=== PATIENT | male | born 1970 | race Caucasian/White ===

== ENCOUNTER 2017-09-01 01:23 | Inpatient (IN) ==
[2017-09-01] MEDS ORDERED: 0.9 % Sodium Chloride 1,000 ML IVC ONE (01:48)
--- NOTE | 2017-09-01 02:00 | Emergency Department Note ---
Disposition Clinical Impression: Severe sepsis Cellulitis Qualifiers: Site of cellulitis: unspecified site Qualified Code(s): L03.90 - Cellulitis, unspecified Disposition: Admitted As Inpatient Condition: Undetermined Referrals: NONE,PCP [Primary Care Provider] - Keven Santoyo [Family Provider] - General Adult HPI - General Chief complaint: ED General Medical Stated complaint: Edema, Skin Infection(s) Time Seen by Provider: 09/01/17 01:33 Source: patient Mode of arrival: private vehicle Limitations: no limitations Nursing Notes Reviewed: Yes Vital Signs Reviewed: Yes - History of Present Illness HPI Narrative: 47-year-old homeless male presents to the emergency department for evaluation of multiple "spider bites", left upper extremity, bilateral lower extremity edema with redness and new abscess areas. Patient states about 6 weeks ago he was seen at [facility] and had a surgery on his hand, and recently he was admitted for cellulitis and these abscesses for IV antibiotics, he stated he only stayed for 2 days and he left AMA on 08/28/17, since then abscesses, edema, red areas have become considerably worse. Patient states he has been having fevers, feeling malaise. Patient states he has a history of IV drug use. Onset (ago): week(s) Radiation: non-radiation Pain Severity: severe Pain Scale: 10 Consistency: constant Improves with: nothing Worsens with: nothing Treatments Prior to Arrival: none - Related Data Allergies Allergy/AdvReac Type Severity Reaction Status Date / Time codeine Allergy See Verified 09/01/17 02:29 Comments Penicillins Allergy See Verified 09/01/17 02:29 Comments All systems ED: reviewed and negative except as stated. Review of Systems: As Per HPI Past Medical History - Past Medical History Attestation: Yes The following information was validated with the patient. Source: patient Medical history: Reports: diabetes - Social History Smoking Status: Current every day smoker Alcohol use: Reports: none Drug use: Reports: cocaine, marijuana Physical Exam - General Limitations: no limitations General appearance: alert, in distress - Head Head exam: atraumatic, normocephalic, normal inspection - ENT ENT exam: mucous membranes dry - Neck Neck exam: Present: normal inspection, full ROM, trachea midline - Chest Chest inspection: Present: normal inspection, symmetric chest wall rise - Respiratory Respiratory exam: Present: normal lung sounds bilaterally - Cardiovascular Cardiovascular exam: Present: regular rate, normal rhythm, normal heart sounds - Abdominal Exam Abdominal exam: Present: soft, Non-Tender - Expanded Lower Extremity Exam Gait: not tested/not observed - Neurological Exam Neurological exam: Present: alert, oriented X3 - Psychiatric Psychiatric exam: Present: agitated, anxious - Skin Skin exam: Present: other - Expanded Skin Exam 1 - 4+ pitting edema, erythemic area just distal to great toe to dorsal side of foot extending half way to ankle 2 - 3+ pitting edema 3 - 2x2 open lesion with purulent drainage on top of granulating tissue 4 - small purulent open, draining lesion 5 - severe edema, erythema 6 - large open lesion with purulent drainage on top of a granulating wound bed 7 - lesion with purulent drainage on top of a granulating wound base 8 - erythemic areas with edema 9 - puncture area 10 - puncture area 11 - large open lesion with purulent drainage to granulating wound bed 12 - smaller open lesion Course Course Narrative: 47-year-old male in obvious distress related to pain. Patient is very anxious. Examination as described above. Briefly, patient with multiple open lesions from draining abscesses, edema to bilateral lower extremities, left upper extremity. Patient perfusing well with distal pulses present and strong, cap refill brisk, EKG reveals sinus tachycardia with a ventricular rate of 101, intervals within normal limits, no indication of ST elevation or depression. Due to lesions, blood pressure obtained on right lower extremity. Briefly discussed patient returning to the [facility] he received care before, he is refusing but is willing to be admitted to our facility. Patient yelling out, very anxious even after pain medicine administration. We will administer lorazepam IV to assist with anxiety. Regional lab work revealed a white count of 20.7, lactic acid 2.8, glucose 594, pH a 0.34, 0.05. Blood cultures were drawn upon arrival. Patient was already running initial bolus, ordered vancomycin and Zosyn after initial blood cultures drawn. We will continue with sepsis subset. Lab attempting to draw second set of blood cultures with patient refusal, he is approached many times regarding need for further laboratory values with refusal. Time lactic acid was ordered upon initial arrival. Patient does meet severe sepsis criteria. He will continue with IV boluses and treatment while in ED. Spoke with hospitalist regarding admission to hospital who is agreeable to accept patient. Vital Signs Temperature 98.2 F 09/01/17 01:36 Pulse Rate 125 09/01/17 01:36 Respiratory Rate 20 09/01/17 01:36 Blood Pressure 162/110 09/01/17 01:36 O2 Sat by Pulse Oximetry 99 09/01/17 01:36 Temperature 98.2 F 09/01/17 01:36 Pulse Rate 94 09/01/17 04:14 Respiratory Rate 16 09/01/17 04:14 Blood Pressure 165/92 09/01/17 04:14 O2 Sat by Pulse Oximetry 100 09/01/17 04:14 Oxygen Delivery Oxygen Delivery Room Air Medical Decision Making - Lab Data Lab results reviewed: Yes I reviewed the patient's lab results. Result diagrams: 09/01/17 01:52 09/01/17 01:52 Lab Results 09/01/17 09/01/17 09/01/17 Range/Units 01:52 01:52 01:52 WBC 20.7 H (4.3-11.1) K/mcL RBC 4.58 (4.19-5.50) M/mcL Hgb 11.4 L (12.9-16.9) g/dL Hct 35.4 L (37.5-50.1) % MCV 77.3 L (83.0-100.0) fL MCH 24.9 L (28.0-33.3) pg MCHC 32.2 (31.6-35.5) g/dL RDW 14.1 (11.5-14.5) % Plt Count 444 H (140-400) K/mcL MPV 8.9 L (9.4-12.4) fL Immature Gran % 0.7 (0-4) % Seg Neutrophils % 86.0 % Lymphocytes % 9.3 % Monocytes % 3.7 % Eosinophils % 0.1 % Basophils % 0.2 % Neutrophils # 17.8 H (1.6-8.9) K/mcL Lymphocytes # 1.9 (0.6-4.6) K/mcL Monocytes # 0.8 (0.0-1.3) K/mcL Eosinophils # 0.0 (0.0-0.6) K/mcL Basophils # 0.0 (0.0-0.2) K/mcL PT 14.4 H (9.4-12.1) Seconds INR 1.3 APTT 29.5 (26.0-36.0) Seconds Sodium 130 L (136-145) mEq/L Potassium 3.7 (3.5-5.1) mEq/L Chloride 95 L (98-107) mEq/L Carbon Dioxide 26 (23-29) mEq/L BUN 5 L (6-20) mg/dL Creatinine 0.61 L (0.70-1.30) mg/dL Est GFR ( Amer) > 60 (> 60) Est GFR (Non-Af Amer) > 60 (> 60) BUN/Creatinine Ratio 8 (6-26) Glucose 594 H* (70-105) mg/dL Calculated Osmolality 295 (280-300) Lactic Acid (0.5-2.2) mmol/L Calcium 8.0 L (8.6-10.3) mg/dL Phosphorus 2.9 (2.7-4.5) mg/dL Magnesium 1.4 L (1.6-2.6) mg/dL Total Bilirubin 0.4 (0.3-1.0) mg/dL Direct Bilirubin 0.1 (0.0-0.2) mg/dL Indirect Bilirubin 0.3 (0.0-1.2) mg/dL AST 16 (13-39) Units/L ALT 26 (7-52) Units/L Alkaline Phosphatase 134 H (34-104) Units/L Troponin I 0.05 H* (< 0.04) ng/mL Serum Total Protein 5.8 L (6.4-8.9) g/dL Albumin 2.3 L (3.5-5.7) g/dL Globulin 3.5 (2.4-3.5) g/dL Albumin/Globulin Ratio 0.7 L (1.1-2.2) Beta-Hydroxybutyric Acd (0.02-0.27) mmol/L 09/01/17 09/01/17 Range/Units 01:52 01:52 WBC (4.3-11.1) K/mcL RBC (4.19-5.50) M/mcL Hgb (12.9-16.9) g/dL Hct (37.5-50.1) % MCV (83.0-100.0) fL MCH (28.0-33.3) pg MCHC (31.6-35.5) g/dL RDW (11.5-14.5) % Plt Count (140-400) K/mcL MPV (9.4-12.4) fL Immature Gran % (0-4) % Seg Neutrophils % % Lymphocytes % % Monocytes % % Eosinophils % % Basophils % % Neutrophils # (1.6-8.9) K/mcL Lymphocytes # (0.6-4.6) K/mcL Monocytes # (0.0-1.3) K/mcL Eosinophils # (0.0-0.6) K/mcL Basophils # (0.0-0.2) K/mcL PT (9.4-12.1) Seconds INR APTT (26.0-36.0) Seconds Sodium (136-145) mEq/L Potassium (3.5-5.1) mEq/L Chloride (98-107) mEq/L Carbon Dioxide (23-29) mEq/L BUN (6-20) mg/dL Creatinine (0.70-1.30) mg/dL Est GFR ( Amer) (> 60) Est GFR (Non-Af Amer) (> 60) BUN/Creatinine Ratio (6-26) Glucose (70-105) mg/dL Calculated Osmolality (280-300) Lactic Acid 2.8 H (0.5-2.2) mmol/L Calcium (8.6-10.3) mg/dL Phosphorus (2.7-4.5) mg/dL Magnesium (1.6-2.6) mg/dL Total Bilirubin (0.3-1.0) mg/dL Direct Bilirubin (0.0-0.2) mg/dL Indirect Bilirubin (0.0-1.2) mg/dL AST (13-39) Units/L ALT (7-52) Units/L Alkaline Phosphatase (34-104) Units/L Troponin I (< 0.04) ng/mL Serum Total Protein (6.4-8.9) g/dL Albumin (3.5-5.7) g/dL Globulin (2.4-3.5) g/dL Albumin/Globulin Ratio (1.1-2.2) Beta-Hydroxybutyric Acd 0.34 H (0.02-0.27) mmol/L - Radiology Data Radiology results reviewed: Yes I reviewed the patient's radiology results.
[2017-09-01] MEDS ORDERED: *HR* Nalbuphine 10 MG/ML AMPUL IM ONE (02:01)
[2017-09-01] MEDS ORDERED: Piperacillin/Tazobactam 3.375 GM in 0.9 % Sodium Chloride Mini Bag 100 ML IVPB ONE (02:01)
[2017-09-01 02:06] LABS: Basophils % 0.2 %; Eosinophils % 0.1 %; Hematocrit 35.4 % (37.5-50.1); Hemoglobin 11.4 g/dL (12.9-16.9); Immature Granulocytes % 0.7 % (0-4); Lymphocytes # 1.9 K/mcL (0.6-4.6); Lymphocytes % 9.3 %; Mean Corpuscular HGB Conc 32.2 g/dL (31.6-35.5); Mean Corpuscular Hemoglobin 24.9 pg (28.0-33.3); Mean Corpuscular Volume 77.3 fL (83.0-100.0); Mean Platelet Volume 8.9 fL (9.4-12.4); Monocytes # 0.8 K/mcL (0.0-1.3); Monocytes % 3.7 %; Neutrophils # 17.8 K/mcL (1.6-8.9); Platelet Count 444 K/mcL (140-400); Red Blood Count 4.58 M/mcL (4.19-5.50); Red Cell Distribution Width 14.1 % (11.5-14.5)
[2017-09-01 02:14] LABS: INR 1.3; Prothrombin Time 14.4 Seconds (9.4-12.1)
[2017-09-01 02:22] LABS: Activated Partial Thrombo Time 29.5 Seconds (26.0-36.0)
[2017-09-01 02:30] LABS: Alanine Aminotransferase 26 Units/L (7-52); Albumin 2.3 g/dL (3.5-5.7); Albumin/Globulin Ratio 0.7 (1.1-2.2); Alkaline Phosphatase 134 Units/L (34-104); Aspartate Amino Transferase 16 Units/L (13-39); BUN/Creatinine Ratio 8 (6-26); Bilirubin,Direct 0.1 mg/dL (0.0-0.2); Bilirubin,Indirect 0.3 mg/dL (0.0-1.2); Bilirubin,Total 0.4 mg/dL (0.3-1.0); Blood Urea Nitrogen 5 mg/dL (6-20); Carbon Dioxide 26 mEq/L (23-29); Chloride 95 mEq/L (98-107); Globulin 3.5 g/dL (2.4-3.5); Glucose 594 mg/dL (70-105); Magnesium 1.4 mg/dL (1.6-2.6); Osmolality,Calculated 295 (280-300); Phosphorous 2.9 mg/dL (2.7-4.5); Potassium 3.7 mEq/L (3.5-5.1); Sodium 130 mEq/L (136-145); Total Protein 5.8 g/dL (6.4-8.9); Troponin I 0.05 ng/mL (< 0.04); eGFR For African Americans > 60 (> 60); eGFR For Non-African Americans > 60 (> 60)
[2017-09-01] MEDS ORDERED: *HR* Nalbuphine 10 MG/ML AMPUL IVP ONE (02:31)
[2017-09-01] MEDS ORDERED: *HR* LORazepam 2 MG/ML VIAL IVP ONE ×2 (02:31→21:45)
[2017-09-01] MEDS ORDERED: Insulin LISPRO 300 UNITS/3 ML VIAL SQ ONE (03:05)
[2017-09-01] MEDS ORDERED: Naloxone 0.4 MG/ML INJ IVP PRN (03:11)
[2017-09-01] MEDS ORDERED: D5% in Water 1,000 ML IVC PRN (03:11)
[2017-09-01] MEDS ORDERED: Acetaminophen 325 MG TABLET PO PRN (03:11)
[2017-09-01] MEDS ORDERED: *HR* Dextrose 50 % in Water (Syg) 50 ML SYRINGE IVP PRN (03:11)
[2017-09-01] MEDS ORDERED: Dextrose Gel 15 GM/37.5 ML TUBE PO PRN ×2 (03:11)
--- NOTE | 2017-09-01 03:16 | Internal Med History&Physical ---
Date of Encounter: 09/01/17 Time of Encounter: 03:13 Internal Medicine - H&P: HPI Chief complaint: Abscess and sores Admitted From: Emergency Dept Plans for Post Hospital Care: Home History of present illness: Mr. Hidalgo is a 47 year old male with history of diabetes, IV drug abuse , was homeless who presents stating that he has multiple "spider bites" all over his body. Please note that the patient was very agitated when he came to the ED and he was given 2 mg of Ativan and both Tylenol and does not seem he was heavily sedated. Most of the history was obtained through the nurse practitioner was seen in the ED. She reported to me that the patient reports that about 6 weeks ago he was seen at [facility] and had surgery on his right hand/wrist for an abscess. He also was admitted recently at [facility] for cellulitis and abscess and was put on IV antibiotics and left after 2 days against medical advise. He stated to the ED staff that since then the abscesses have become more red, edematous, and painful. He has been having fevers and feeling generalized malaise. In the ED he was noted to be hypertensive. He was afebrile. Laboratory workup showed leukocytosis, lactic acidosis, and mildly elevated troponins at 0.04. His glucose was noted to be in the 500s he was given IV fluids and 5 units of insulin. The patient was given Zosyn and vancomycin in the ED as well. Past Med Surg Social Fam HX - Past Medical History Medical history: diabetes Additional medical history: herniated disk - Past Surgical History Additional surgical history: right knee sx. right hand sx - Social History Smoking Status: Current every day smoker Alcohol use: none Drug use: cocaine, marijuana Internal Medicine - H&P: Meds 3 Allergy/AdvReac Type Severity Reaction Status Date / Time codeine Allergy See Verified 09/01/17 02:29 Comments Penicillins Allergy See Verified 09/01/17 02:29 Comments ROS unobtainable: due to mental status - Constitutional Vitals: Temp Pulse Resp BP Pulse Ox 98.2 F 87 18 162/110 96 09/01/17 01:36 09/01/17 02:57 09/01/17 02:57 09/01/17 01:36 09/01/17 02:57 Exam: GEN: sedated, lethargic HEENT: AT, NC, No cyanosis, oral mucosa is moist, No JVD Lymphatics: No lymphadenoapthy Eyes: Extrocular muscles intact, anicteric CVS:RRR. S1, S2, No m/r/g RESP: CTAB ABD: Soft, NT, ND, +BS EXT: No edema, erythema noted throughout his trunk and back and in the lower extremities bilaterally. Tattoos noted throughout his body. 2+ DP NEURO: Moves extremities spontaneously. Pupils equal and reactive. Internal Med - H&P Results - Labs CBC & Chem 7: 09/01/17 01:52 09/01/17 01:52 Labs: Short CBC 09/01/17 Range/Units 01:52 WBC 20.7 H (4.3-11.1) K/mcL Hgb 11.4 L (12.9-16.9) g/dL Hct 35.4 L (37.5-50.1) % Plt Count 444 H (140-400) K/mcL Neutrophils # 17.8 H (1.6-8.9) K/mcL BMP 09/01/17 01:52 Sodium 130 L Potassium 3.7 Chloride 95 L Carbon Dioxide 26 BUN 5 L Creatinine 0.61 L Glucose 594 H* Calcium 8.0 L Cardiac Enzymes 09/01/17 Range/Units 01:52 Troponin I 0.05 H* (< 0.04) ng/mL Liver Function 09/01/17 Range/Units 01:52 Total Bilirubin 0.4 (0.3-1.0) mg/dL Direct Bilirubin 0.1 (0.0-0.2) mg/dL AST 16 (13-39) Units/L ALT 26 (7-52) Units/L Alkaline Phosphatase 134 H (34-104) Units/L Albumin 2.3 L (3.5-5.7) g/dL - Assessment and plan (1) Encephalopathy acute Current Visit: Yes Status: Acute Assessment and plan: Patient is likely to be encephalopathic due Ativan. Reportedly he was belligerent and agitated upon presentation and needed to be given Ativan. He may have been under the influence of some type of a substance when he presented. We will check a urine drug screen. We will await the morning for his mental status did clear. (2) Severe sepsis Current Visit: Yes Status: Acute Assessment and plan: Has leukocytosis, tachycardia, as well as lactic acidosis. Source is likely to be cellulitis. We will treat underlying causes below. (3) Cellulitis Current Visit: Yes Status: Acute Assessment and plan: We will place patient on IV vancomycin and Zosyn. Continue IV fluids. Follow- up on blood cultures. May need a consult to ID. Patient may end up requesting to leave AMA. Records have been requested from [facility] Qualifiers: Site of cellulitis: unspecified site Qualified Code(s): L03.90 - Cellulitis , unspecified (4) Hyperglycemia Current Visit: Yes Status: Acute Assessment and plan: Likely secondary sepsis. We will put him on sliding scale. His been given IV insulin in the ED. We will continue Accu-Cheks and have repeat of his glucose after some IV admission. Check A1c. (5) Diabetes mellitus Current Visit: Yes Status: Acute Assessment and plan: Patient is hyperglycemic. ACCU-CHEKS. Medium dose sliding scale. Diabetic diet. Rest of plan as above. Qualifiers: Diabetes mellitus type: type 2 Diabetes mellitus chcf insulin use: without chcf use Diabetes mellitus complication status: without complication Qualified Code(s): E11.9 - Type 2 diabetes mellitus without complications (6) Lactic acidosis Current Visit: Yes Status: Acute Assessment and plan: Patient has received IV fluids in the ED. We will give IV fluids and repeat lactic acid. (7) Hyponatremia Current Visit: Yes Status: Acute Assessment and plan: Likely pseudohyponatremia given elevated glucose. We will monitor. Patient is on IV fluids. (8) Elevated blood pressure reading Current Visit: Yes Status: Acute Assessment and plan: Unsure of the patient's history. Unknown if he has hypertension. We will put him on IV hydralazine when necessary. (9) Elevated troponin Current Visit: Yes Status: Acute Assessment and plan: Likely secondary to sepsis. No EKG changes concerning for ischemia. We will trend for now. (10) DVT prophylaxis Current Visit: Yes Status: Acute Assessment and plan: Heparin subcutaneous - Time Spent With Patient Total time spent is greater than 50% in coordination of care (as documented) at patient's floor/unit and/or counseling patient:
--- NOTE | 2017-09-01 03:56 | Emergency Department Note ---
Disposition Clinical Impression: Severe sepsis Cellulitis Qualifiers: Site of cellulitis: unspecified site Qualified Code(s): L03.90 - Cellulitis, unspecified Disposition: Admitted As Inpatient Condition: Fair General Adult HPI - General Chief complaint: ED Skin/Abscess/Foreign Body Stated complaint: Edema, Skin Infection(s) Time Seen by Provider: 09/01/17 01:33 Source: patient Mode of arrival: private vehicle Limitations: no limitations Nursing Notes Reviewed: Yes Vital Signs Reviewed: Yes - History of Present Illness Pain Scale: 10 Improves with: nothing Worsens with: nothing Treatments Prior to Arrival: none - Related Data Allergies Allergy/AdvReac Type Severity Reaction Status Date / Time codeine Allergy See Verified 09/01/17 02:29 Comments Penicillins Allergy See Verified 09/01/17 02:29 Comments Past Medical History - Past Medical History Medical history: Reports: diabetes - Social History Smoking Status: Current every day smoker Alcohol use: Reports: none Drug use: Reports: cocaine, marijuana Physical Exam - General Limitations: no limitations General appearance: alert, in distress Course Vital Signs Temperature 98.2 F 09/01/17 01:36 Pulse Rate 125 09/01/17 01:36 Respiratory Rate 20 09/01/17 01:36 Blood Pressure 162/110 09/01/17 01:36 O2 Sat by Pulse Oximetry 99 09/01/17 01:36 Temperature 98.2 F 09/01/17 01:36 Pulse Rate 94 09/01/17 04:14 Respiratory Rate 16 09/01/17 05:07 Blood Pressure 180/99 09/01/17 05:07 O2 Sat by Pulse Oximetry 100 09/01/17 04:14 Oxygen Delivery Oxygen Delivery Room Air Medical Decision Making - Lab Data Result diagrams: 09/01/17 01:52 09/01/17 01:52 Lab Results 09/01/17 09/01/17 09/01/17 Range/Units 01:52 01:52 01:52 WBC 20.7 H (4.3-11.1) K/mcL RBC 4.58 (4.19-5.50) M/mcL Hgb 11.4 L (12.9-16.9) g/dL Hct 35.4 L (37.5-50.1) % MCV 77.3 L (83.0-100.0) fL MCH 24.9 L (28.0-33.3) pg MCHC 32.2 (31.6-35.5) g/dL RDW 14.1 (11.5-14.5) % Plt Count 444 H (140-400) K/mcL MPV 8.9 L (9.4-12.4) fL Immature Gran % 0.7 (0-4) % Seg Neutrophils % 86.0 % Lymphocytes % 9.3 % Monocytes % 3.7 % Eosinophils % 0.1 % Basophils % 0.2 % Neutrophils # 17.8 H (1.6-8.9) K/mcL Lymphocytes # 1.9 (0.6-4.6) K/mcL Monocytes # 0.8 (0.0-1.3) K/mcL Eosinophils # 0.0 (0.0-0.6) K/mcL Basophils # 0.0 (0.0-0.2) K/mcL PT 14.4 H (9.4-12.1) Seconds INR 1.3 APTT 29.5 (26.0-36.0) Seconds Sodium 130 L (136-145) mEq/L Potassium 3.7 (3.5-5.1) mEq/L Chloride 95 L (98-107) mEq/L Carbon Dioxide 26 (23-29) mEq/L BUN 5 L (6-20) mg/dL Creatinine 0.61 L (0.70-1.30) mg/dL Est GFR ( Amer) > 60 (> 60) Est GFR (Non-Af Amer) > 60 (> 60) BUN/Creatinine Ratio 8 (6-26) Glucose 594 H* (70-105) mg/dL Calculated Osmolality 295 (280-300) Lactic Acid (0.5-2.2) mmol/L Calcium 8.0 L (8.6-10.3) mg/dL Phosphorus 2.9 (2.7-4.5) mg/dL Magnesium 1.4 L (1.6-2.6) mg/dL Total Bilirubin 0.4 (0.3-1.0) mg/dL Direct Bilirubin 0.1 (0.0-0.2) mg/dL Indirect Bilirubin 0.3 (0.0-1.2) mg/dL AST 16 (13-39) Units/L ALT 26 (7-52) Units/L Alkaline Phosphatase 134 H (34-104) Units/L Troponin I 0.05 H* (< 0.04) ng/mL Serum Total Protein 5.8 L (6.4-8.9) g/dL Albumin 2.3 L (3.5-5.7) g/dL Globulin 3.5 (2.4-3.5) g/dL Albumin/Globulin Ratio 0.7 L (1.1-2.2) Beta-Hydroxybutyric Acd (0.02-0.27) mmol/L 09/01/17 09/01/17 Range/Units 01:52 01:52 WBC (4.3-11.1) K/mcL RBC (4.19-5.50) M/mcL Hgb (12.9-16.9) g/dL Hct (37.5-50.1) % MCV (83.0-100.0) fL MCH (28.0-33.3) pg MCHC (31.6-35.5) g/dL RDW (11.5-14.5) % Plt Count (140-400) K/mcL MPV (9.4-12.4) fL Immature Gran % (0-4) % Seg Neutrophils % % Lymphocytes % % Monocytes % % Eosinophils % % Basophils % % Neutrophils # (1.6-8.9) K/mcL Lymphocytes # (0.6-4.6) K/mcL Monocytes # (0.0-1.3) K/mcL Eosinophils # (0.0-0.6) K/mcL Basophils # (0.0-0.2) K/mcL PT (9.4-12.1) Seconds INR APTT (26.0-36.0) Seconds Sodium (136-145) mEq/L Potassium (3.5-5.1) mEq/L Chloride (98-107) mEq/L Carbon Dioxide (23-29) mEq/L BUN (6-20) mg/dL Creatinine (0.70-1.30) mg/dL Est GFR ( Amer) (> 60) Est GFR (Non-Af Amer) (> 60) BUN/Creatinine Ratio (6-26) Glucose (70-105) mg/dL Calculated Osmolality (280-300) Lactic Acid 2.8 H (0.5-2.2) mmol/L Calcium (8.6-10.3) mg/dL Phosphorus (2.7-4.5) mg/dL Magnesium (1.6-2.6) mg/dL Total Bilirubin (0.3-1.0) mg/dL Direct Bilirubin (0.0-0.2) mg/dL Indirect Bilirubin (0.0-1.2) mg/dL AST (13-39) Units/L ALT (7-52) Units/L Alkaline Phosphatase (34-104) Units/L Troponin I (< 0.04) ng/mL Serum Total Protein (6.4-8.9) g/dL Albumin (3.5-5.7) g/dL Globulin (2.4-3.5) g/dL Albumin/Globulin Ratio (1.1-2.2) Beta-Hydroxybutyric Acd 0.34 H (0.02-0.27) mmol/L Attestation Statement - Attestation Attestation: I, Jefferson Ricardo MD, personally evaluated this patient and discussed their management with the resident physician. I reviewed the resident's note and agree with the documented findings, medical decision making, and plan of care. 47-year-old male presents to the emergency department complaining of pain and swelling in his left hand and left arm. He also complains of multiple open wounds and drainage. No fever. Patient had surgery on his right hand about 6 weeks ago and then started developing these sores in wounds. He was apparently recently in the hospital in [place] and left AMA several days ago. On examination patient is a well-developed well-nourished male in no acute distress. He is alert and answers questions appropriately. No cyanosis or diaphoresis. Breath sounds are clear and equal bilaterally. Heart regular with a mild tachycardia. Abdomen soft and nontender with normal bowel sounds. Patient has multiple scattered open wounds with surrounding erythema and purulent drainage. There is moderate swelling of the left distal forearm and hand and erythema. Also moderate erythema over the medial proximal left upper arm. Labs reviewed. Blood cultures obtained and antibiotics initiated. The hospitalist, Dr. Joy, was consulted and accepted admission of the patient.
[2017-09-01 05:14] LABS: Bilirubin,Urine Negative (Negative); Blood,Urine Negative (Negative); Clarity,Urine Clear (Clear); Glucose,Urine (UA) 500 mg/dL (Normal); Ketones,Urine Negative (Negative); Leukocyte Esterase,Urine Negative (Negative); Nitrite,Urine Negative (Negative); PH,Urine 7.5 pH Units (5.0-8.0); Protein,Urine Negative (Neg-Trace); Specific Gravity,Urine 1.015 (1.010-1.025); Urobilinogen,Urine Normal (Normal)
[2017-09-01 05:18] LABS: Color,Urine Light Yellow (Yellow)
[2017-09-01 05:41] LABS: Amphetamine Screen,Urine Positive ng/mL (Cutoff=1000); Barbiturate Screen,Urine Negative ng/mL (Cutoff=200); Benzodiazepines Screen,Urine Negative ng/mL (Cutoff=200); Cannabinoid Screen,Urine Negative ng/mL (Cutoff = 50); Cocaine Screen,Urine Negative ng/mL (Cutoff= 300); Opiate Screen,Urine Positive ng/mL (Cutoff=300); Phencyclidine Screen,Urine Negative ng/mL (Cutoff=25)
[2017-09-01] MEDS ORDERED: Haloperidol Lactate 5 MG/ML VIAL IVP ONE (06:13)
[2017-09-01] MEDS: 0.9 % Sodium Chloride 1,000 ML IVC SCH ×2 (06:29→19:51)
[2017-09-01] MEDS: *HR* Heparin 5,000 UNIT/ML VIAL SQ SCH ×3 (06:34→19:51)
[2017-09-01 07:05] LABS: Estimated Average Glucose 395 mg/dl; Hemoglobin A1C 15.4 %
[2017-09-01] MEDS: Insulin LISPRO 300 UNITS/3 ML VIAL SQ SCH ×3 (07:47→16:03)
[2017-09-01 08:19] LABS: ABG Base Excess 7 mEq/L (-2 to 3); ABG HCO3 31 mEq/L (21-27); ABG Oxygen Saturation 98 % (95-98); ABG PCO2 44 mmHg (35-45); ABG PH 7.46 pH Units (7.32-7.45); ABG PO2 94 mmHg (85-104); ABG TCO2 33 mEq/L (20-26)
[2017-09-01] MEDS ORDERED: Aminoglycoside Consult 1 EACH MC ONE (10:02)
--- NOTE | 2017-09-01 10:08 | Electrocardiograph Report ---
[address] [address] Test Date: 2017-09-01 Pat Name: Ronald Hidalgo Department: 102 Room: 02 Gender: M [employer]fd[employer] Technical Architect: Campos : [id number] Requested By: [id number] Order Number: [id number] Reading MD: Mele Zendejas Measurements Intervals [place] Rate: 101 P: 25 MD: 127 QRS: 56 QRSD: 97 T: 44 QT: 350 QTc: 408 Interpretive Statements SINUS TACHYCARDIA Electronically Signed On 09-01-2017 10:06:49 EDT by Mele Zendejas
[2017-09-01] MEDS: Piperacillin/Tazobactam 3.375 GM in 0.9 % Sodium Chloride Mini Bag 100 ML IVPB SCH ×2 (11:05→18:04)
[2017-09-01] MEDS ORDERED: traMADol 50 MG TABLET PO PRN (19:14)
[2017-09-01] MEDS ORDERED: Insulin LISPRO 300 UNITS/3 ML VIAL SQ SCH (21:00)
[2017-09-02] MEDS ORDERED: Piperacillin/Tazobactam 3.375 GM VIAL ONE (01:46)
[2017-09-02] MEDS: Piperacillin/Tazobactam 3.375 GM in 0.9 % Sodium Chloride Mini Bag 100 ML IVPB SCH ×2 (01:53→08:48)
[2017-09-02] MEDS: *HR* Heparin 5,000 UNIT/ML VIAL SQ SCH (03:10)
[2017-09-02] MEDS: 0.9 % Sodium Chloride 1,000 ML IVC SCH (04:08)
[2017-09-02 07:56] VITALS: BP 200/98
--- NOTE | 2017-09-02 08:46 | Internal Med Progress Note ---
Date of Encounter: 09/02/17 Time of Encounter: 08:00 - Assessment and plan (1) Sepsis affecting skin Current Visit: Yes Status: Acute Assessment and plan: 7 abscesses noted as described in my exam. These usually are polymicrobial. Plan Continue vancomycin and Zosyn and follow blood cultures. If Blood cultures are positive obtain echo. Wound care is following (2) Diabetes mellitus Current Visit: Yes Status: Acute Assessment and plan: Blood glucose uncontrolled despite of starting scale insulin. He will need basal insulin. Providing insulin syringes would be challenging considering he has IV drug abuser. Plan Start Lantus 15 units Continue sliding scale insulin Check GAD65 antibodies Qualifiers: Diabetes mellitus type: type 2 Diabetes mellitus mcc insulin use: without mcc use Diabetes mellitus complication status: without complication Qualified Code(s): E11.9 - Type 2 diabetes mellitus without complications (3) Lactic acidosis Current Visit: Yes Status: Acute Assessment and plan: Plan Continue IV fluids Follow labs from today (4) Elevated troponin Current Visit: Yes Status: Acute Assessment and plan: Plan Recheck today morning Check CK (5) Encephalopathy acute Current Visit: Yes Status: Acute Assessment and plan: Urine drug screen shows opiates and amphetamines. He is sober now, mentation is clear. (6) DVT prophylaxis Current Visit: Yes Status: Acute Assessment and plan: Heparin subcutaneous - Time Spent With Patient Total time spent is greater than 50% in coordination of care (as documented) at patient's floor/unit and/or counseling patient: 25 - 35 minutes - Subjective Interval history: Pain is adequately controlled. He wishes to go home. No events overnight. - Constitutional Vitals: Temp Pulse Resp BP Pulse Ox 97.9 F 93 21 200/98 98 09/02/17 07:50 09/02/17 07:50 09/02/17 07:50 09/02/17 07:50 09/02/17 07:50 Exam: Physical exam Gen: Comfortable, laying in bed, in no visible distress HEENT: Normocephalic, atraumatic. No conjunctival icterus. Moist oral mucosa. Neck: Supple Lungs: Clear to auscultation, no foreign sounds Heart: Normal S1-S2, no murmurs rubs or gallops Abdomen: Normoactive bowel sounds, no guarding rigidity or tenderness Extremities: No edema clubbing or cyanosis Neuro: Alert oriented 3, no focal deficits Skin: Right arm has 3 open wounds with clean-based ulcers oozing pus. Left arm has 2 similar lesions one on the left shoulder and forearm. Right leg proximal and distal has to open wounds with clean-based ulcers was impossible. Multiple skin tattoos. Internal Medicine: Result - Labs CBC & Chem 7: 09/01/17 01:52 09/01/17 01:52 Labs: Cardiac Enzymes 09/01/17 Range/Units 14:36 Troponin I 0.06 H* (< 0.04) ng/mL - ABG Interpretation ABG results: ABG ABG pH 7.46 pH Units (7.32-7.45) H 09/01/17 08:16 ABG pCO2 44 mmHg (35-45) 09/01/17 08:16 ABG pO2 94 mmHg (85-104) 09/01/17 08:16 ABG O2 Saturation 98 % (95-98) 09/01/17 08:16 PT/INR, D-dimer PT 14.4 Seconds (9.4-12.1) H 09/01/17 01:52 Consult Discharge Plan - Plan Referrals: NONE,PCP [Primary Care Provider] - Keven Santoyo [Family Provider] -
[2017-09-02] MEDS: Insulin LISPRO 300 UNITS/3 ML VIAL SQ SCH (08:47)
[2017-09-02] MEDS ORDERED: Insulin DETEMIR 100 UNIT/ML X5UNITS SQ SCH (09:00)
== END 2017-09-02 10:03 | disposition left against medical advice (07) | DRG 871 ==
LOC: EMEROO 01:23 → 3BNU 04:05 → 2NNU 04:54
PROVIDERS: ADMIT Internal Medicine; ATTEND Internal Medicine

== ENCOUNTER 2017-09-03 00:14 | Inpatient (IN) ==
[2017-09-03] MEDS ORDERED: Piperacillin/Tazobactam 3.375 GM in 0.9 % Sodium Chloride Mini Bag 100 ML IVPB ONE (00:32)
[2017-09-03] MEDS ORDERED: *HR* Methadone 5 MG TABLET PO STA (00:33)
--- NOTE | 2017-09-03 00:38 | Emergency Department Note ---
Disposition Clinical Impression: Sepsis affecting skin, Severe sepsis Cellulitis Qualifiers: Site of cellulitis: extremity Site of cellulitis of extremity: upper extremity Laterality: unspecified laterality Qualified Code(s): L03.119 - Cellulitis of unspecified part of limb Disposition: Admitted As Inpatient Condition: Serious Time of Disposition: 02:23 General Adult HPI - General Chief complaint: ED General Medical Stated complaint: Re-admit Sepsis Time Seen by Provider: 09/03/17 00:21 Source: patient Mode of arrival: ambulatory Limitations: no limitations Nursing Notes Reviewed: Yes Vital Signs Reviewed: Yes - History of Present Illness HPI Narrative: 47-year-old male history of insulin-dependent diabetes, methamphetamine use, heroin use, presents complaining of bilateral upper and lower extremity sores, patient was just admitted to the hospital for severe sepsis. Given vancomycin and Zosyn, he left AGAINST MEDICAL ADVICE eloped from hospital to fill out his FMLA paperwork. Patient states that he came back today because his been feeling worse, Slevin fevers, sores have not got better. Radiation: extremity Pain Severity: severe, similar to prior episodes Pain Scale: 10 Improves with: nothing Worsens with: nothing Associated symptoms: Denies: confusion, chest pain, diaphoresis, fever/chills, headaches, loss of appetite - Related Data Home Medications Medication Instructions Recorded Confirmed No Known Home Drugs 09/01/17 09/01/17 Allergies Allergy/AdvReac Type Severity Reaction Status Date / Time codeine Allergy See Verified 09/01/17 18:05 Comments Penicillins Allergy See Verified 09/01/17 18:05 Comments All systems ED: reviewed and negative except as stated. Review of Systems: As Per HPI Constitutional: Reports: fever, chills Eyes: Denies: eye pain, eye discharge ENT ED: Denies: ear pain Cardiovascular: Denies: chest pain Respiratory: Denies: cough, dyspnea Gastrointestinal: Reports: nausea. Denies: abdominal pain, hematemesis Genitourinary: Denies: urgency Musculoskeletal: Reports: as per HPI, joint swelling, arthralgia. Denies: back pain, myalgia Integumentary: Reports: as per HPI, rash Neurological: Denies: headache Psychiatric: Denies: anxiety Past Medical History - Past Medical History Attestation: Yes The following information was validated with the patient. Source: patient Medical history: Reports: diabetes - Social History Smoking Status: Current every day smoker Alcohol use: Reports: none Drug use: Reports: cocaine, marijuana Physical Exam Constitutional: Disheveled cachectic male appears older than stated age in poor health. Eyes: PERRLA, sclera anicteric ENT & Mouth: Mucous membranes dry Neck: normal inspection, neck is supple Resp: CTA bilaterally, no resp distress CV: Tachycardic no m/g/r GI: normal inspection, soft, no guarding or rigidity Neuro: A&O3, CNII-XII grossly intact, YEAGER Skin: Multiple lesions, on his upper or lower extremities, the right forearm has anterior lesion at its 3-4 cm ulcerated, his troponin erythema consistent with cellulitis, right arm has a 3 cm diameter ulcerated lesion, left hand is markedly edematous, erythematous, with an ulcerative lesion as well. No crepitus is felt his a thigh and her right medial calf lesion as well. It is likely there is no crepitus or fluctuance. - General General appearance: alert, in no apparent distress Course Course Narrative: 47-year-old male with sepsis from cellulitis on his bilateral upper and lower extremities, patient will be given an IV, fluid bolus, basic lab work he does have risk factors including IV drug use and diabetes, he was just hospital and warrants longer course of antibiotics at this time. - Reevaluation(s) Reevaluation #1: Patient with evidence of sepsis meets criteria for severe sepsis without septic shock with lactate of 2.3, started empirically on vancomycin and Zosyn, will be admitted to the hospitalist Juliana accepting Time: 02:23 Vital Signs Temperature 98.0 F 09/03/17 00:18 Pulse Rate 109 09/03/17 00:18 Respiratory Rate 16 09/03/17 00:18 Blood Pressure 166/93 09/03/17 00:18 O2 Sat by Pulse Oximetry 98 09/03/17 00:18 Temperature 98.0 F 09/03/17 00:18 Pulse Rate 99 09/03/17 01:50 Respiratory Rate 16 09/03/17 01:50 Blood Pressure 198/101 09/03/17 01:50 O2 Sat by Pulse Oximetry 98 09/03/17 01:50 Oxygen Delivery Oxygen Delivery Room Air Medical Decision Making - Medical Records Medical records reviewed: Yes I reviewed the patient's medical records. - Lab Data Lab results reviewed: Yes I reviewed the patient's lab results. Result diagrams: 09/03/17 00:49 09/03/17 00:49 Lab Results 09/03/17 09/03/17 09/03/17 Range/Units 00:49 00:49 00:49 WBC 13.8 H (4.3-11.1) K/mcL RBC 4.46 (4.19-5.50) M/mcL Hgb 11.2 L (12.9-16.9) g/dL Hct 35.0 L (37.5-50.1) % MCV 78.5 L (83.0-100.0) fL MCH 25.1 L (28.0-33.3) pg MCHC 32.0 (31.6-35.5) g/dL RDW 14.3 (11.5-14.5) % Plt Count 412 H (140-400) K/mcL MPV 8.8 L (9.4-12.4) fL Immature Gran % 0.6 (0-4) % Seg Neutrophils % 70.7 % Lymphocytes % 19.8 % Monocytes % 7.8 % Eosinophils % 0.9 % Basophils % 0.2 % Neutrophils # 9.8 H (1.6-8.9) K/mcL Lymphocytes # 2.7 (0.6-4.6) K/mcL Monocytes # 1.1 (0.0-1.3) K/mcL Eosinophils # 0.1 (0.0-0.6) K/mcL Basophils # 0.0 (0.0-0.2) K/mcL Sodium 130 L (136-145) mEq/L Potassium 3.6 (3.5-5.1) mEq/L Chloride 96 L (98-107) mEq/L Carbon Dioxide 25 (23-29) mEq/L BUN 8 (6-20) mg/dL Creatinine 0.64 L (0.70-1.30) mg/dL Est GFR ( Amer) > 60 (> 60) Est GFR (Non-Af Amer) > 60 (> 60) BUN/Creatinine Ratio 13 (6-26) Glucose 502 H* (70-105) mg/dL Calculated Osmolality 291 (280-300) Lactic Acid 2.3 H (0.5-2.2) mmol/L Calcium 8.1 L (8.6-10.3) mg/dL Phosphorus 3.6 (2.7-4.5) mg/dL Magnesium 1.4 L (1.6-2.6) mg/dL Beta-Hydroxybutyric Acd (0.02-0.27) mmol/L Urine Color (Yellow) Urine Clarity (Clear) Urine pH (5.0-8.0) pH Units Ur Specific [place] (1.010-1.025) Urine Protein (Neg-Trace) mg/dL Urine Glucose (UA) (Normal) mg/dL Urine Ketones (Negative) mg/dL Urine Blood (Negative) Urine Nitrite (Negative) Urine Bilirubin (Negative) Urine Urobilinogen (Normal) mg/dL Ur Leukocyte Esterase (Negative) Ur Culture Indicated? (NO) 09/03/17 09/03/17 Range/Units 00:49 01:36 WBC (4.3-11.1) K/mcL RBC (4.19-5.50) M/mcL Hgb (12.9-16.9) g/dL Hct (37.5-50.1) % MCV (83.0-100.0) fL MCH (28.0-33.3) pg MCHC (31.6-35.5) g/dL RDW (11.5-14.5) % Plt Count (140-400) K/mcL MPV (9.4-12.4) fL Immature Gran % (0-4) % Seg Neutrophils % % Lymphocytes % % Monocytes % % Eosinophils % % Basophils % % Neutrophils # (1.6-8.9) K/mcL Lymphocytes # (0.6-4.6) K/mcL Monocytes # (0.0-1.3) K/mcL Eosinophils # (0.0-0.6) K/mcL Basophils # (0.0-0.2) K/mcL Sodium (136-145) mEq/L Potassium (3.5-5.1) mEq/L Chloride (98-107) mEq/L Carbon Dioxide (23-29) mEq/L BUN (6-20) mg/dL Creatinine (0.70-1.30) mg/dL Est GFR ( Amer) (> 60) Est GFR (Non-Af Amer) (> 60) BUN/Creatinine Ratio (6-26) Glucose (70-105) mg/dL Calculated Osmolality (280-300) Lactic Acid (0.5-2.2) mmol/L Calcium (8.6-10.3) mg/dL Phosphorus (2.7-4.5) mg/dL Magnesium (1.6-2.6) mg/dL Beta-Hydroxybutyric Acd < 0.10 (0.02-0.27) mmol/L Urine Color Yellow (Yellow) Urine Clarity Clear (Clear) Urine pH 6.5 (5.0-8.0) pH Units Ur Specific [place] > 1.030 H (1.010-1.025) Urine Protein Negative (Neg-Trace) mg/dL Urine Glucose (UA) >=1000 H (Normal) mg/dL Urine Ketones Negative (Negative) mg/dL Urine Blood Negative (Negative) Urine Nitrite Negative (Negative) Urine Bilirubin Negative (Negative) Urine Urobilinogen Normal (Normal) mg/dL Ur Leukocyte Esterase Negative (Negative) Ur Culture Indicated? NO (NO) - Radiology Data Radiology results reviewed: Yes I reviewed the patient's radiology results. - EKG Data EKG #1 EKG attestation: Yes I reviewed and interpreted this EKG. EKG shows normal: sinus rhythm Rate: tachycardia (101 vent rate, [place] 130, QRS 106) Interpretation: no acute changes - Core Measures AMI Core Measures Followed: No Measure Exclusions: not indicated Attestation Statement - Attestation Attestation: I examined this patient and my medical decision-making was reviewed with the Resident Physician. I agree with the documented findings, disposition and treatment plan as described except to the extent set forth below. Patient with severe drug addiction, multiple abscesses as well as cellulitis who failed outpatient antibiotics and ultimately was admitted for sepsis but had several elopements due to drug addiction. He now is back with worsening cellulitis. He will be admitted after initiation of antibiotics and IV fluids. No evidence of soft tissue gas on x-rays.
[2017-09-03 01:06] LABS: Basophils % 0.2 %; Eosinophils # 0.1 K/mcL (0.0-0.6); Eosinophils % 0.9 %; Hemoglobin 11.2 g/dL (12.9-16.9); Immature Granulocytes % 0.6 % (0-4); Lymphocytes # 2.7 K/mcL (0.6-4.6); Lymphocytes % 19.8 %; Mean Corpuscular Hemoglobin 25.1 pg (28.0-33.3); Mean Corpuscular Volume 78.5 fL (83.0-100.0); Mean Platelet Volume 8.8 fL (9.4-12.4); Monocytes # 1.1 K/mcL (0.0-1.3); Monocytes % 7.8 %; Neutrophils # 9.8 K/mcL (1.6-8.9); Platelet Count 412 K/mcL (140-400); Red Blood Count 4.46 M/mcL (4.19-5.50); Red Cell Distribution Width 14.3 % (11.5-14.5); Segmented Neutrophils % 70.7 %
[2017-09-03] MEDS: 0.9 % Sodium Chloride 1,000 ML IVC SCH ×5 (01:17→13:17)
[2017-09-03 01:33] LABS: BUN/Creatinine Ratio 13 (6-26); Blood Urea Nitrogen 8 mg/dL (6-20); Calcium 8.1 mg/dL (8.6-10.3); Carbon Dioxide 25 mEq/L (23-29); Chloride 96 mEq/L (98-107); Glucose 502 mg/dL (70-105); Magnesium 1.4 mg/dL (1.6-2.6); Osmolality,Calculated 291 (280-300); Phosphorous 3.6 mg/dL (2.7-4.5); Potassium 3.6 mEq/L (3.5-5.1); Sodium 130 mEq/L (136-145); eGFR For African Americans > 60 (> 60); eGFR For Non-African Americans > 60 (> 60)
[2017-09-03] MEDS ORDERED: 0.9 % Sodium Chloride 1,000 ML IVC ONE (01:33)
[2017-09-03] MEDS ORDERED: *HR* LORazepam 2 MG/ML VIAL IVP ONE (01:39)
[2017-09-03] MEDS ORDERED: *HR* LORazepam 2 MG/ML VIAL ONE (01:42)
[2017-09-03 01:47] LABS: Bilirubin,Urine Negative (Negative); Blood,Urine Negative (Negative); Clarity,Urine Clear (Clear); Color,Urine Yellow (Yellow); Glucose,Urine (UA) >=1000 mg/dL (Normal); Ketones,Urine Negative (Negative); Leukocyte Esterase,Urine Negative (Negative); Nitrite,Urine Negative (Negative); PH,Urine 6.5 pH Units (5.0-8.0); Protein,Urine Negative (Neg-Trace); Specific Gravity,Urine > 1.030 (1.010-1.025); Urobilinogen,Urine Normal (Normal)
[2017-09-03] MEDS ORDERED: Insulin Human Regular 10 UNIT in 0.9 % Sodium Chloride 10 ML IV ONE (02:19)
[2017-09-03] MEDS ORDERED: Ondansetron 4 MG/2 ML VIAL IVP PRN (02:25)
[2017-09-03] MEDS ORDERED: *HR* Dextrose 50 % in Water (Syg) 50 ML SYRINGE IVP PRN (02:27)
[2017-09-03] MEDS ORDERED: Acetaminophen 325 MG TABLET PO PRN (02:27)
[2017-09-03] MEDS ORDERED: Naloxone 0.4 MG/ML INJ IVP PRN (02:27)
[2017-09-03] MEDS ORDERED: D5% in Water 1,000 ML IVC PRN (02:27)
[2017-09-03] MEDS ORDERED: Dextrose Gel 15 GM/37.5 ML TUBE PO PRN ×2 (02:27)
--- NOTE | 2017-09-03 02:33 | Internal Med History&Physical ---
Date of Encounter: 09/03/17 Time of Encounter: 02:31 Internal Medicine - H&P: HPI Chief complaint: Fever Admitted From: Emergency Dept Plans for Post Hospital Care: Home History of present illness: Mr. Hidalgo is a 47 year old male with history of diabetes, multi-substance abuse including heroin, amphetamine, narcotic pills, hypertension, medical noncompliance, homelessness who presents through the ED with multiple site erythema and fever. I admitted the patient 2 nights ago with similar complaints. At the time we admitted him for severe sepsis and put him on IV vancomycin and Zosyn. He was evaluated the next morning by the day team hospitalist. The patient ended up leaving AGAINST MEDICAL ADVICE yesterday as he says he wanted to take care of FMLA papers. He comes back stating that he will not leave this time and also saying that he is febrile again. In the ED laboratory workup again showed leukocytosis, lactic acidosis, hyperglycemia. The patient has not been on any medications. He says he was cleaning from substance abuse up until about 6 months ago and he tells me that he "lost everything". In the ED he was tachycardic and hypertensive. He was given IV fluids, vancomycin and Zosyn, 10 units of regular insulin, 5 mg of methadone, and 1 mg of Ativan. Multiple x-rays of his extremities were done that showed only soft tissue swelling. The patient states that he is in significant pain throughout his extremities. The patient denies any headache, blurry vision, chest pain, shortness of breath, abdominal pain, diarrhea, constipation, urinary symptoms, or neurological symptoms. Past Med Surg Social Fam HX - Past Medical History Medical history: diabetes Additional medical history: herniated disk - Past Surgical History Additional surgical history: right knee sx. right hand sx - Social History Smoking Status: Current every day smoker Alcohol use: none Drug use: cocaine, marijuana Internal Medicine - H&P: Meds No Known Home Drugs 09/01/17 [History] 3 Allergy/AdvReac Type Severity Reaction Status Date / Time codeine Allergy See Verified 09/01/17 18:05 Comments Penicillins Allergy See Verified 09/01/17 18:05 Comments All Systems PM: A 10-system review of systems was performed and is negative for pertinent findings except as documented above in the HPI. Review of systems: All systems reviewed are negative except as mentioned above - Constitutional Vitals: Temp Pulse Resp BP Pulse Ox 98.0 F 99 16 198/101 98 09/03/17 00:18 09/03/17 01:50 09/03/17 01:50 09/03/17 01:50 09/03/17 01:50 Exam: GEN: NAD HEENT: AT, NC, No cyanosis, oral mucosa is moist, No JVD Lymphatics: No lymphadenoapthy Eyes: Extrocular muscles intact, anicteric CVS:RRR. S1, S2, No m/r/g RESP: CTAB ABD: Soft, NT, ND, +BS EXT: No edema, No edema, erythema noted throughout his trunk and back and in the lower extremities bilaterally. Tattoos noted throughout his body. 2+ DP 2 + DP NEURO: Nonfocal, CN II-XII intact, No focal motor or sensory deficits Psych: Cooperative, Not anxious or depressed Internal Med - H&P Results - Labs CBC & Chem 7: 09/03/17 00:49 09/03/17 00:49 - Assessment and plan (1) Severe sepsis Current Visit: Yes Status: Acute Assessment and plan: Meets criteria with leukocytosis, tachycardia, lactic acidosis, and a source being multiple skin abscesses and cellulitis. Given IV fluids and blood cultures collected. We will treat underlying causes below. (2) Cellulitis Current Visit: Yes Status: Acute Assessment and plan: We will place the patient on IV vancomycin and Zosyn. IV fluids. Follow up on cultures. Pain control. The patient's pain may be hard to control given the fact that he abuses narcotics. The ED elected to give him a dose of methadone. I have put him on Percocets when necessary. He may need to consult pain management. Qualifiers: Site of cellulitis: extremity Site of cellulitis of extremity: upper extremity Laterality: unspecified laterality Qualified Code(s): L03.119 - Cellulitis of unspecified part of limb (3) Diabetes mellitus Current Visit: No Status: Acute Assessment and plan: A1c is over 15 on last visit. His glucose in the 500s here. We will start him on sliding scale insulin medium dose. We will give him 30 units of Levemir. We will start him on 30 units Levemir daily at bedtime. Accu-Cheks. Qualifiers: Diabetes mellitus type: type 2 Diabetes mellitus intermodal dispatcher insulin use: without snf use Diabetes mellitus complication status: without complication Qualified Code(s): E11.9 - Type 2 diabetes mellitus without complications (4) Hyperglycemia Current Visit: No Status: Acute Assessment and plan: As above. Patient is not in DKA. We will continue IV hydration and insulin regimen as above. (5) Lactic acidosis Current Visit: No Status: Acute Assessment and plan: Given IV fluids bolus in the ED. We will continue IV fluids and repeat lactic acid. (6) Hyponatremia Current Visit: No Status: Acute Assessment and plan: Likely due to hypoglycemia. We will monitor. Patient is on IV fluids. (7) HTN (hypertension) Current Visit: Yes Status: Acute Assessment and plan: The patient had elevated blood pressure last visit as well. He used to be on blood pressure medication but has not been on any for multiple months. We will put him on IV hydralazine.. We will start him on lisinopril 20 mg daily Qualifiers: Hypertension type: essential hypertension Qualified Code(s): I10 - Essential (primary) hypertension (8) Substance abuse Current Visit: Yes Status: Acute Assessment and plan: Consult psychosocial rehabilitation counselor. (9) Homelessness Current Visit: Yes Status: Acute Assessment and plan: Consult psychosocial rehabilitation counselor. (10) DVT prophylaxis Current Visit: No Status: Acute Assessment and plan: Heparin subcutaneous - Time Spent With Patient Total time spent is greater than 50% in coordination of care (as documented) at patient's floor/unit and/or counseling patient:
[2017-09-03] MEDS ORDERED: Magnesium Oxide 400 MG TABLET PO ONE (03:15)
[2017-09-03] MEDS ORDERED: Insulin DETEMIR 100 UNIT/ML X5UNITS SQ ONE (03:15)
[2017-09-03] MEDS: *HR* HYDROcodone/Acet 5/325 mg TABLET PO PRN ×3 (03:50→20:50)
[2017-09-03] MEDS: *HR* Heparin 5,000 UNIT/ML VIAL SQ SCH ×3 (04:55→21:03)
[2017-09-03] MEDS ORDERED: *HR* FentaNYL (PF) 100 MCG/2 ML VIAL IVP ONE (07:44)
[2017-09-03 07:46] LABS: VBG HCO3 27 mEq/L (21-27); VBG PCO2 37 mmHg (41-51); VBG PH 7.46 pH Units (7.32-7.42); VBG PO2 166 mmHg (25-50)
[2017-09-03] MEDS: Insulin LISPRO 300 UNITS/3 ML VIAL SQ SCH ×3 (09:09→17:06)
[2017-09-03] MEDS: Lisinopril 20 MG TABLET PO SCH (09:17)
[2017-09-03] MEDS: Piperacillin/Tazobactam 3.375 GM in 0.9 % Sodium Chloride Mini Bag 100 ML IVPB SCH ×3 (09:17→23:34)
[2017-09-03] MEDS ORDERED: Aminoglycoside Consult 1 EACH MC ONE (09:49)
[2017-09-03] MEDS: *HR* OxyCODONE Immed Rel 5 MG TABLET PO PRN ×2 (17:12→23:32)
--- NOTE | 2017-09-03 19:56 | Electrocardiograph Report ---
[address] [address] Test Date: 2017-09-03 Pat Name: Ronald Hidalgo Department: 103 Room: 3A Gender: M Rn Icu: MARIO : 1970 Requested By: Colten Spence Order Number: [id number] Reading MD: Bc Watkins Measurements Intervals [place] Rate: 101 P: 30 MT: 130 QRS: 52 QRSD: 106 T: 46 QT: 328 QTc: 386 Interpretive Statements SINUS TACHYCARDIA BASELINE ARTIFACT Electronically Signed On 09-03-2017 19:54:33 EDT by Bc Watkins
[2017-09-03] MEDS ORDERED: Insulin LISPRO 300 UNITS/3 ML VIAL SQ SCH (21:00)
[2017-09-03] MEDS ORDERED: Insulin DETEMIR 100 UNIT/ML X5UNITS SQ SCH (21:00)
[2017-09-04] MEDS ORDERED: Insulin LISPRO 300 UNITS/3 ML VIAL SQ ONE (01:00)
[2017-09-04] MEDS: *HR* HYDROcodone/Acet 5/325 mg TABLET PO PRN ×2 (02:49→07:14)
[2017-09-04] MEDS: 0.9 % Sodium Chloride 1,000 ML IVC SCH ×2 (02:51→05:42)
[2017-09-04] MEDS: *HR* OxyCODONE Immed Rel 5 MG TABLET PO PRN ×2 (04:11→09:10)
[2017-09-04] MEDS: *HR* Heparin 5,000 UNIT/ML VIAL SQ SCH (05:44)
[2017-09-04 07:47] VITALS: BP 177/89
[2017-09-04] MEDS: Piperacillin/Tazobactam 3.375 GM in 0.9 % Sodium Chloride Mini Bag 100 ML IVPB SCH (09:09)
[2017-09-04] MEDS: Insulin LISPRO 300 UNITS/3 ML VIAL SQ SCH (09:09)
[2017-09-04] MEDS: Lisinopril 20 MG TABLET PO SCH (09:10)
--- NOTE | 2017-09-04 09:45 | Event Note ---
Date of Encounter: 09/04/17 Time of Encounter: 09:45 Patient left AMA. Will send a prescription of Augmentin to his pharmacy as a coutesy. Jaz Johnson MD
== END 2017-09-04 09:50 | disposition left against medical advice (07) | DRG 872 ==
LOC: ICNU 00:14 → EMEROO 00:14 → OBSVTOIN 02:27 → ICNU 02:28 → 3ANU 12:27
PROVIDERS: ADMIT Internal Medicine; ATTEND Internal Medicine